=== PATIENT | female | born 1950 | race Caucasian/White ===

== ENCOUNTER 2016-08-28 20:33 | Emergency (ER) | payer MEDICARE, BC | END 2016-08-28 22:31 | disposition left against medical advice (07) | LOC: DL.ED 20:33 ==

== ENCOUNTER 2016-12-11 21:30 | Emergency (ER) | payer MEDICARE, BC ==
[2016-12-11 21:53] VITALS: BP 173/96
[2016-12-11] MEDS ORDERED: Sodium Chloride 0.9% 1,000 ML IV ONE (21:55)
[2016-12-11] MEDS ORDERED: HYDROmorphone 1 MG/ML Syringe IVPUSH ONE (21:55)
[2016-12-11] MEDS ORDERED: Ondansetron 4 MG/2 ML SDV IV ONE (21:55)
--- NOTE | 2016-12-11 21:59 | EDM.PDOC ---
ED HPI GENERAL MEDICAL PROBLEM - General Chief Complaint: Abdominal Pain Stated Complaint: SEVERE STOMACH PAIN [id number] Time Seen by Provider: 12/11/16 21:53 Source of Information: Reports: Patient, Family History Limitations: Reports: No Limitations - History of Present Illness INITIAL COMMENTS - FREE TEXT/NARRATIVE: onset left side abd' pain since 3pm, worse now, did eat something at noon, h/o pancreatitis. GB out. Left Lower Abdomen Pain Score (Numeric/FACES): 10 - Related Data Allergies Allergy/AdvReac Type Severity Reaction Status Date / Time No Known Allergies Allergy Verified 12/11/16 21:47 Home Meds: Home Meds . [No Known Home Meds] 08/25/15 [History] Past Medical History Genitourinary History: Reports: Renal Cal[employer] History: Reports: Musculoskeletal History: Reports: Arthritis, Other (See Below) Other Musculoskeletal History: history of cortisone injections to back - Infectious Disease History Infectious Disease History: Reports: Measles - Past Surgical History GI Surgical History: Reports: Appendectomy, Cholecystectomy, Other (See Below) Social & Family History - Tobacco Use Smoking Status *Q: Former Smoker Years of Tobacco use: 35 Packs/Tins Daily: 1.5 Used Tobacco, but Quit: Yes Month Tobacco Last Used: unknown Second Hand Smoke Exposure: No - Alcohol Use Days Per Week of Alcohol Use: 0 - Recreational Drug Use Recreational Drug Use: No ED ROS GENERAL - Review of Systems Review Of Systems: ROS reveals no pertinent complaints other than HPI. ED EXAM, GI/ABD - Physical Exam Exam: See Below Exam Limited By: No Limitations General Appearance: Alert, WD/WN, Moderate Distress, Other (crying in pain) Ears: Hearing Grossly Normal Throat/Mouth: Normal Voice, No Airway Compromise Head: Atraumatic Neck: Non-Tender, Full Range of Motion Respiratory/Chest: No Respiratory Distress Cardiovascular: Regular Rate, Rhythm GI/Abdominal Exam: Guarding, Tender, Other (left lateral>). No: Rigid, Rebound Neurological: Alert, Oriented, Normal Cognition, Normal Gait, No Motor/Sensory Deficits Psychiatric: Normal Affect, Normal Mood Skin Exam: Warm, Dry, Normal Color Lymphatic: No Adenopathy Course - Vital Signs Last Recorded V/S: Last Vital Signs Temp 36.1 C 12/11/16 21:51 Pulse 97 10/20/17 21:51 Resp 20 12/11/16 21:51 BP 173/96 H 12/11/16 21:51 Pulse Ox 100 12/11/16 21:51 - Orders/Labs/Meds Labs: Laboratory Tests 12/11/16 12/11/16 12/12/16 Range/Units 21:55 21:55 00:52 WBC 9.5 (5.0-10.0) 10^3/uL RBC 4.44 (4.2-5.4) 10^6/uL Hgb 13.9 (12.0-16.0) g/dL Hct 41.5 (37.0-47.0) % MCV 93.5 (80-100) fL MCH 31.3 (27.0-34.0) pg MCHC 33.5 (33.0-35.0) g/dL Plt Count 228 (150-450) 10^3/uL Neut % (Auto) 80.9 H (42.2-75.2) % Lymph % (Auto) 10.8 L (20.5-50.1) % [place] % (Auto) 6.9 (2-8) % Eos % (Auto) 1.2 (1.0-3.0) % Baso % (Auto) 0.2 (0.0-1.0) % Sodium 140 (135-145) mmol/L Potassium 3.9 (3.6-5.0) mmol/L Chloride 105 (101-111) mmol/L Carbon Dioxide 22.0 (21.0-31.0) mmol/L Anion Gap 16.9 BUN 14 (7-18) mg/dL Creatinine 0.9 (0.6-1.3) mg/dL Est Cr Clr Drug Dosing 50.86 mL/min Estimated GFR (MDRD) > 60 BUN/Creatinine Ratio 15.55 Glucose 121 H (74-105) mg/dL Calcium 9.7 (8.4-10.2) mg/dl Total Bilirubin 0.7 (0.2-1.0) mg/dL AST 29 (10-42) IU/L ALT 18 (10-60) IU/L Alkaline Phosphatase 96 (42-121) IU/L Total Protein 6.6 L (6.7-8.2) g/dl Albumin 4.3 (3.2-5.5) g/dl Globulin 2.3 Albumin/Globulin Ratio 1.87 Amylase 69 (28-100) U/L Lipase 32 (22-51) U/L Urine Color Yellow (YELLOW) Urine Appearance Slightly cloudy (CLEAR) Urine pH 7.0 (5.0-9.0) Ur Specific [place] 1.015 (1.005-1.030) Urine Protein Negative (NEGATIVE) Urine Glucose (UA) Negative (NEGATIVE) Urine Ketones Trace H (NEGATIVE) Urine Occult Blood Large H (NEGATIVE) Urine Nitrite Negative (NEGATIVE) Urine Bilirubin Negative (NEGATIVE) Urine Urobilinogen 1.0 (0.2-1.0) mg/dL Ur Leukocyte Esterase Negative (NEGATIVE) Urine RBC 5-10 H /HPF Urine WBC Not seen (0-5/HPF) /HPF Ur Epithelial Cells Rare /HPF Urine Bacteria Moderate H (0-FEW/HPF) /HPF Meds: Medications Discontinued Medications Generic Name Dose Route Start Last Admin Trade Name Freq PRN Reason Stop Dose Admin Hydromorphone HCl 1 mg 12/11/16 21:55 12/11/16 22:06 Dilaudid IVPUSH 12/11/16 21:56 1 mg ONETIME ONE Administration Sodium Chloride 1,000 mls @ 500 mls/hr 12/11/16 21:55 12/11/16 22:06 Normal Saline IV 12/11/16 23:54 500 mls/hr .BOLUS ONE Administration Iopamidol 75 ml 12/11/16 22:37 12/11/16 22:55 Isovue-300 (61%) IVPUSH 12/11/16 22:38 75 ml ONETIME ONE Administration Lorazepam 2 mg 12/11/16 22:36 12/11/16 22:41 Ativan IVPUSH 12/11/16 22:37 2 mg ONETIME ONE Administration Ondansetron HCl 4 mg 12/11/16 21:55 12/11/16 22:03 Zofran IV 12/11/16 21:56 4 mg ONETIME ONE Administration - Re-Assessments/Exams Free Text/Narrative Re-Assessment/Exam: 12/12/16 06:42 re-exam; s/p IV fluids + Rx = much better. states been under a lot of stress both physically & emotionally past few weeks. also had K-stones ~ 5 years ago. Departure - Departure Time of Disposition: 06:44 Disposition: Home, Self-Care 01 Condition: Good Clinical Impression: Flank pain, Renal colic on left side - Discharge Information Instructions: Renal Colic, [id number] Forms: ED Department Discharge Additional Instructions: 1) rest as much as possible next 48 hours 2) drink more liquids 3) follow up with family doctor for UROLOGY REFERRAL on kidney stones 4) recheck if there is ay change or concerns
[2016-12-11 22:28] LABS: CHLORIDE,CL 105 mmol/L (101-111); SODIUM,NA 140 mmol/L (135-145)
[2016-12-11] MEDS ORDERED: LORazepam 2 MG/ML Syringe IVPUSH ONE (22:36)
[2016-12-11] MEDS ORDERED: Iopamidol 612 MG/ML 75 ML Bottle IVPUSH ONE (22:37)
== END 2016-12-12 06:53 | disposition home or self-care (01) ==
LOC: DL.ED 21:30
DX: N23 Unspecified renal colic (principal); Z87.891 Personal history of nicotine dependence
CPT/HCPCS: 36415; 74177; 80053; 81001; 82150; 83690; 85025; 96361; 96374; 96375; 99284; J1170; J2060; J2405; J7030; Q9967